=== PATIENT | male | born 2005 | race Caucasian/White ===

== ENCOUNTER 2024-09-11 06:18 | Day surgery (SDC) | payer OTHER, SELFPAY | END 2024-09-11 14:24 | disposition home or self-care (01) | LOC: GI 06:18 | PROVIDERS: ATTENDING PHYSICIAN Internal Medicine Gastroenterology | DX: K29.70 Gastritis, unspecified, without bleeding (principal); R10.9 Unspecified abdominal pain | CPT/HCPCS: 43239; 88305; 88342 ==

== ENCOUNTER 2024-10-05 15:57 | Emergency (ER) | payer OTHER, SELFPAY ==
[2024-10-05 16:01] VITALS: BP 143/100
[2024-10-05 16:15] LABS: % Basophils 0.2 % (0-2); % Immature Granulocytes 0.1 % (0-0.5); % Neutrophils 64.7 % (42.2-75.2); Absolute Lymphocytes 2.2 10^3/uL (1.2-3.4); Absolute Monocytes 0.7 10^3/uL (0.1-0.6); Absolute Neutrophils 5.4 10^3/uL (1.4-6.5); Hematocrit 43.5 % (39.0-52.0); Hemoglobin 15.4 g/dL (13.0-18.0); Mean Corp Hgb Conc. 35.4 g/dL (33.0-37.0); Mean Corpuscular Volume 87.5 fL (80.0-94.0); Mean Platelet Volume 9.3 fL (7.4-10.4); Nucleated Red Blood Cells % 0 % (-); Platelet Count 254 10^3/uL (130-400); Red Blood Cell Count 4.97 10^6/uL (4.70-6.10); Red Cell Dist. Width 11.9 % (11.5-14.5); White Blood Cell Count 8.3 10^3/uL (4.8-10.8)
[2024-10-05 16:36] LABS: ALT (SGPT) 37 U/L (0-50); AST (SGOT) 42 U/L (17-59); Albumin 5.3 g/dl (3.5-5.0); Alkaline Phosphatase 103 U/L (38-126); Blood Urea Nitrogen 15 mg/dl (9-20); Calcium 10.2 mg/dl (8.4-10.2); Carbon Dioxide 24 mmol/L (22-30); Chloride 101 mmol/L (98-107); Glucose 100 mg/dl (70-99); Lipase 71 U/L (23-300); Potassium 4.1 mmol/L (3.5-5.1); Sodium 139 mmol/L (135-145); Total Bilirubin 1.1 mg/dl (0.2-1.3); Total Protein 7.8 g/dl (6.3-8.2); eGFR > 60.00
--- NOTE | 2024-10-05 18:03 | ED.GENMED ---
History of Present Illness
General
Chief Complaint: Abdominal Symptoms
Source: patient
Exam Limitations: none
Time Seen by Provider: 10/05/24 17:49
History of Present Illness
History of Present Illness:
18-year-old male presents with onset of vomiting abdominal pain and diarrhea. He states he drank a lot of alcohol last evening. There was no blood in his vomit 1 episode of diarrhea was dark but since then has had normal colored stools. He notes
diffuse abdominal pain. No fevers. No known sick contacts. No other complaints at this time
Phy Exam
Physical Exam
Physical Exam:
General: Well-appearing male no acute respiratory distress
HEENT: Normocephalic atraumatic
Heart: Regular rate and rhythm
Lungs: Clear no wheeze
Abdomen soft mildly diffusely tender no guarding rebound normal bowel sounds nondistended
Extremities: No cyanosis or edema
Course
Orders/Labs/Results
Orders:
Orders
10/05/24 16:06
Complete Blood Count/With Diff Urgent
Comprehensive Metabolic Panel Urgent
Lipase Urgent
10/05/24 18:01
0.9% Sodium Chloride 1000 ml [Nss] 1,000 ml IV BOLUS
Famotidine [Pepcid] 20 mg IV NOW STA
Ondansetron Injectable [Zofran] 4 mg IV NOW STA
10/05/24 18:31
Ketorolac [Toradol] 15 mg .ROUTE .STK-MED ONE
10/05/24 18:32
Ketorolac [Toradol] 15 mg IV NOW STA
10/05/24 19:13
Mag Hydrox/Al Hydrox/Simeth [Maalox] 30 ml Phenobarb/Hyoscy/Atropine/Scop [] 10 ml Viscous Lidocaine 2% [Xylocaine Viscous Cup] 10 ml PO NOW
10/05/24 19:17
Mag Hydrox/Al Hydrox/Simeth [Maalox] 30 ml .ROUTE .STK-MED ONE
Phenobarb/Hyoscy/Atropine/Scop [] 10 ml .ROUTE .STK-MED ONE
Viscous Lidocaine 2% [Xylocaine Viscous Cup] 15 ml .ROUTE .STK-MED ONE
Abnormal Lab Results
10/05/24
16:06
Absolute Monos (auto) 0.7 H 10^3/uL
(0.1-0.6)
Glucose 100 H mg/dl
(70-99)
Albumin 5.3 H g/dl
(3.5-5.0)
10/05/24 16:06
10/05/24 16:06
Vital Signs
Initial and Last Documented VS:
Initial Vital Signs
Temp Pulse Resp BP Pulse Ox
98.2 F 103 18 143/100 98
10/05/24 16:01 10/05/24 16:01 10/05/24 16:01 10/05/24 16:01 10/05/24 16:01
Last Documented Vital Signs
Temp Pulse Resp BP Pulse Ox
98.2 F 103 18 143/100 98
10/05/24 16:01 10/05/24 16:01 10/05/24 16:01 10/05/24 16:01 10/05/24 16:01
MDM/Problems Addressed
Differential Diagnosis Includes:
Abdominal pain nausea vomiting diarrhea. Question adverse reaction to alcohol use versus viral illness. Abdomen exam quite benign. Considered imaging but not indicated at this time. Will hydrate IV Pepcid and Zofran. Reviewed labs all of which
are without significant finding
*Critical Care Note
Total Time (30-74mins, 75-104mins- exclusive of procedures): Not Applicable
Update Note
Update Note:
Patient reevaluated nontoxic. Now tolerating oral fluids. Symptoms slightly improved. No further vomiting still with benign abdominal assessment. Will prescribe Zofran for him to go home with. Stable for discharge
ED Attending Note
-
Portions of this chart may have been created with voice recognition software.� Occasional wrong word or��sound alike� substitutions may have occurred due to the inherent limitations of voice recognition software.
Discharge Plan
Departure
Patient Disposition: Home (Routine Discharge)
Patient with high blood pressure during this ER visit?: No
Discharge Problem:
Abdominal pain
Instructions: Abdominal Pain
Prescriptions:
New
ondansetron 4 mg tablet,disintegrating
4 mg PO Q8H PRN (Reason: nausea and vomiting) Qty: 10 0RF
Referrals:
Chandana Damon MD [Family Provider] -
Activity Restrictions/Additional Instructions:
Drink plenty of clear liquids. Use Zofran if needed for nausea. Eat a bland diet. Return if worse otherwise follow-up with your doctor
Interventions
Interventions:
*Risk Screen - Suicide Last Done: 10/05/24 16:01
*General Assessment Last Done: 10/05/24 16:01
*ED COVID-19 Vaccine History Last Done: 10/05/24 16:01
Discharge Date and Time
Print Language: LATVIAN
[2024-10-05] MEDS: NSS 1000 IV (18:24)
[2024-10-05] MEDS: PEPCID 20 MG IV (18:24)
[2024-10-05] MEDS: ZOFRAN 4 MG IV (18:25)
[2024-10-05] MEDS: TORADOL 15 MG IV (18:32)
[2024-10-05] MEDS: MAALOX 50 PO (19:20)
[2024-10-05 20:31] VITALS: BP 133/62
== END 2024-10-05 20:33 | disposition home or self-care (01) ==
LOC: EMR 15:57
PROVIDERS: Emergency Medicine; EMERGENCY PHYSICIAN Emergency Medicine; FAMILY PHYSICIAN Pediatrics
DX: R10.9 Unspecified abdominal pain (principal)
CPT/HCPCS: 99284; 96374; 96375 ×2; 96361; 80053; 83690; 85025